=== PATIENT | male | born 1945 | race Caucasian/White ===

== ENCOUNTER 2018-11-13 12:06 | Inpatient (IN) | payer OTHER, MEDICAID ==
[~2018-11-13] VITALS: Ht 175.3 cm; Wt 83.6 kg
[2018-11-13] MEDS ORDERED: ALBUTEROL (0.083%) 2.5MG/3ML NEB HHN STA (12:11)
[2018-11-13] MEDS ORDERED: METHYLPREDNISOLONE SOD SUCC 125 MG/2 ML VIAL IV STA (12:11)
[2018-11-13] MEDS ORDERED: IPRATROPIUM BROMIDE (0.02%) 0.5MG/2.5ML NEB HHN STA (12:11)
[2018-11-13 12:44] LABS: HEMATOCRIT. 44.3 % (42.0-52.0); HEMOGLOBIN. 14.5 g/dL (14.0-18.0); MEAN CORPUSCULAR HEMOGLOBIN 28.9 pg (28.0-32.0); MEAN CORPUSCULAR VOLUME 88.1 fL (80.0-94.0); PLATELET 230 x1000/uL (130-400); RED BLOOD CELL COUNT 5.03 mill/uL (4.7-6.1); RED CELL DISTRIBUTION WIDTH 17.4 % (11.6-14.6)
[2018-11-13 12:51] LABS: CHLORIDE 98 mEq/L (98-107)
[2018-11-13] MEDS ORDERED: LEVOFLOXACIN 750MG PREMIX 150 ML IV ONE (13:00)
[2018-11-13 13:15] LABS: PLATELET ESTIMATE NORMAL
[2018-11-13 14:02] LABS: BG BASE EXCESS -0.5 mmol/L (-2.0-2.0); BG CARBOXYHEMOGLOBIN 0.2 % (0.5-1.5); BG FRACTION INSPIRED OXYGEN 100; BG HCO3 ACT 23.1 mmol/L (22.0-26.0); BG METHEMOGLOBIN 0.3 % (0.0-1.5); BG OXYHEMOGLOBIN 98.5 % (94.0-97.0); BG PCO2 35.2 mmHg (35.0-45.0); BG PH 7.435 (7.350-7.450); BG PO2 180.3 mmHg (75.0-100.0); BG SAMPLE SITE RIGHT RADIAL; BG TOTAL HEMOGLOBIN 14.8 g/dL (12.0-18.0); BG VENT MODE MASK - BIPAP
[2018-11-13 15:50] VITALS: BP 132/92
[2018-11-13 16:01] VITALS: BP 132/92
[2018-11-13 16:14] VITALS: BP 138/91
[2018-11-13] MEDS ORDERED: PRED-543 PO (16:57)
[2018-11-13] MEDS ORDERED: TIOT18CA3 IH (16:57)
[2018-11-13] MEDS ORDERED: CLOT24CR TP (16:57)
[2018-11-13] MEDS ORDERED: FLUT1DIS3 INH (17:05)
[2018-11-13] MEDS ORDERED: FURO20TA4 PO (17:05)
[2018-11-13] MEDS ORDERED: DABI150C PO (17:05)
[2018-11-13] MEDS ORDERED: TAMS-11 PO (17:05)
[2018-11-13] MEDS ORDERED: REV20 GT (17:05)
[2018-11-13] MEDS ORDERED: SERT50TA12 PO (17:05)
[2018-11-13] MEDS ORDERED: ATOR-2 PO (17:05)
[2018-11-13] MEDS ORDERED: LOSA25TA3 PO (17:05)
[2018-11-13] MEDS ORDERED: NICO-645 TP (17:05)
[2018-11-13] MEDS ORDERED: OMEP20TA15 PO (17:10)
[2018-11-13] MEDS ORDERED: BIMA2.5D4 LEFTEYE (17:10)
[2018-11-13] MEDS ORDERED: BRIM10DR2 LEFTEYE (17:10)
[2018-11-13] MEDS ORDERED: FLUT9.9S BOTHNSTRLS (17:10)
[2018-11-13] MEDS ORDERED: MONT10TA21 PO (17:10)
[2018-11-13] MEDS ORDERED: TRU10 LEFTEYE (17:10)
[2018-11-13] MEDS ORDERED: METF1000 PO (17:10)
[2018-11-13 18:00] VITALS: BP 174/80
[2018-11-13 20:03] VITALS: BP 135/96
[2018-11-13] MEDS ORDERED: CLONIDINE 0.1MG TABLET PO PRN (20:30)
[2018-11-13] MEDS ORDERED: ONDANSETRON HCL 4MG/2ML INJ IV PRN (20:30)
[2018-11-13] MEDS ORDERED: DIPHENHYDRAMINE 50MG/ML VIAL IV PRN (20:30)
[2018-11-13] MEDS ORDERED: IPRATROPIUM/ALBUTEROL 0.5-3(2.5)MG/3ML NEB INH PRN (20:30)
[2018-11-13] MEDS ORDERED: GUAIFENESIN 200MG/10ML SUGAR FREE UDC PO PRN (20:30)
[2018-11-13] MEDS ORDERED: ACETAMINOPHEN 325MG TABLET PO PRN (20:30)
[2018-11-13] MEDS ORDERED: LORAZEPAM 2MG/ML CPJ IV PRN (20:30)
[2018-11-13] MEDS ORDERED: MAGNESIUM/ALUMINUM HYDROXIDE/SIMETHICONE 30ML UDC PO PRN (20:30)
[2018-11-13] MEDS ORDERED: LEVOFLOXACIN 500MG PREMIX 100 ML IV SCH ×2 (20:30→22:30)
[2018-11-13] MEDS ORDERED: DEXTROSE 50% WATER 50ML SYRINGE IV PRN (20:45)
[2018-11-13] MEDS: METHYLPREDNISOLONE SOD SUCC 40 MG/ML VIAL IV SCH (21:46)
[2018-11-13] MEDS: SODIUM CHLORIDE 0.9% INJ 3ML FLUSH IVF SCH (21:47)
[2018-11-13] MEDS: INSULIN LISPRO 100 UNITS/ML SUBCUT SCH (21:49)
[2018-11-13] MEDS: BLOOD SUGAR DIAGNOSTIC STRIP TEST SCH (21:49)
[2018-11-13] MEDS ORDERED: MONTELUKAST SODIUM 10MG TABLET PO SCH (22:00)
[2018-11-13] MEDS: ENOXAPARIN 80MG/0.8ML SYR SUBCUT SCH (23:08)
[2018-11-14] VITALS (9 sets, daily range): BP systolic 30–169; BP diastolic 21–96
[2018-11-14 00:05] LABS: INR 1.3; PROTHROMBIN TIME 13.3 sec (9.6-11.0)
[2018-11-14] MEDS: IPRATROPIUM/ALBUTEROL 0.5-3(2.5)MG/3ML NEB HHN SCH ×4 (00:48→11:29)
[2018-11-14] MEDS: BLOOD SUGAR DIAGNOSTIC STRIP TEST SCH (06:28)
[2018-11-14] MEDS: METHYLPREDNISOLONE SOD SUCC 40 MG/ML VIAL IV SCH ×2 (06:32→11:37)
[2018-11-14] MEDS: SODIUM CHLORIDE 0.9% INJ 3ML FLUSH IVF SCH (06:33)
[2018-11-14] MEDS: INSULIN LISPRO 100 UNITS/ML SUBCUT SCH (06:33)
[2018-11-14] MEDS ORDERED: OMEPRAZOLE 20MG CAPSULE EXTENDED RELEASE PO SCH (06:50)
[2018-11-14] MEDS ORDERED: SERTRALINE HCL 25MG TABLET PO SCH (09:00)
[2018-11-14] MEDS ORDERED: DORZOLAMIDE 2% OPHTH 10 ML BOTTLE LEFTEYE SCH (09:00)
[2018-11-14] MEDS ORDERED: TAMSULOSIN HCL 0.4MG SR CAPSULE PO SCH (09:00)
[2018-11-14] MEDS ORDERED: NICOTINE 14MG PATCH TD SCH (09:00)
[2018-11-14] MEDS: ENOXAPARIN 80MG/0.8ML SYR SUBCUT SCH (09:08)
[2018-11-14 09:41] LABS: BG BASE EXCESS -0.9 mmol/L (-2.0-2.0); BG BILEVEL POS AIRWAY PRESSURE 15/5; BG CARBOXYHEMOGLOBIN 0.4 % (0.5-1.5); BG DEOXYHEMOGLOBIN 9.3 % (0.0-5.0); BG HCO3 ACT 22.5 mmol/L (22.0-26.0); BG METHEMOGLOBIN 0.1 % (0.0-1.5); BG OXYGEN SATURATION 90.7 % (92.0-98.5); BG OXYHEMOGLOBIN 90.2 % (94.0-97.0); BG PCO2 33.8 mmHg (35.0-45.0); BG PH 7.441 (7.350-7.450); BG PO2 65.8 mmHg (75.0-100.0); BG SAMPLE SITE RIGHT RADIAL; BG TOTAL HEMOGLOBIN 14.6 g/dL (12.0-18.0); BG VENT MODE MASK - BIPAP; BG VENT RATE 16 set
[2018-11-14] MEDS ORDERED: ATROPINE SULFATE 1MG/10ML SYR ONE (12:20)
[2018-11-14] MEDS ORDERED: ETOMIDATE 2MG/ML 10ML VIAL IV ONE (12:20)
[2018-11-14] MEDS ORDERED: VECURONIUM BROMIDE 10 MG/VIAL IV ONE (12:20)
[2018-11-14] MEDS ORDERED: LIDOCAINE HCL 2% 5ML SYRINGE IV ONE (12:20)
[2018-11-14] MEDS ORDERED: SUCCINYLCHOLINE CHLORIDE 200MG/10ML IV ONE (12:20)
[2018-11-14] MEDS ORDERED: SODIUM BICARBONATE 8.4% 10MEQ/10ML SYR IV ONE (12:20)
[2018-11-14] MEDS ORDERED: CALCIUM CHLORIDE 1GM/10ML SYR IV ONE (12:20)
[2018-11-14] MEDS ORDERED: EPINEPHRINE 0.1MG/ML (1:10,000) 10ML SYR ONE (12:20)
[2018-11-14] MEDS ORDERED: AMIODARONE HCL 50MG/ML 3ML VIAL IV ONE (12:20)
[2018-11-14] MEDS ORDERED: SODIUM CHLORIDE 0.9% 10ML VIAL ONE ×2 (12:20)
[2018-11-14] MEDS ORDERED: PROPOFOL 10MG/ML 100ML 100 ML IV PRN (12:45)
[2018-11-14] MEDS ORDERED: FUROSEMIDE 40MG/4ML VIAL ONE (12:50)
[2018-11-14] MEDS ORDERED: FUROSEMIDE 40MG/4ML VIAL IVP ONE (13:00)
[2018-11-14] MEDS ORDERED: NITROGLYCERIN 50MG PREMIX 250 ML IV PRN (13:00)
[2018-11-14 13:28] LABS: BG BASE EXCESS -6.7 mmol/L (-2.0-2.0); BG CARBOXYHEMOGLOBIN 0.3 % (0.5-1.5); BG DEOXYHEMOGLOBIN 11.6 % (0.0-5.0); BG FRACTION INSPIRED OXYGEN 100; BG HCO3 ACT 22.7 mmol/L (22.0-26.0); BG METHEMOGLOBIN 0.3 % (0.0-1.5); BG OXYGEN SATURATION 88.3 % (92.0-98.5); BG OXYHEMOGLOBIN 87.8 % (94.0-97.0); BG PH 7.182 (7.350-7.450); BG PO2 73.8 mmHg (75.0-100.0); BG SAMPLE SITE LEFT RADIAL; BG TIDAL VOLUME(mL) 500 mL; BG TOTAL HEMOGLOBIN 15.4 g/dL (12.0-18.0); BG VENT MODE VENT - A/C; BG VENT RATE 16 set
[2018-11-14] MEDS ORDERED: DOPAMINE 400MG/250ML PREMIX 250 ML IV ONE (13:35)
[2018-11-14] MEDS ORDERED: SODIUM BICARBONATE 8.4% 1 MEQ/ML 50ML SYR IV ONE ×2 (13:42→13:45)
== END 2018-11-14 14:46 | disposition expired | DRG 871 ==
LOC: ER 12:22 → 3WST 13:38 → ENRESERV 14:55 → MICUSO 11-14 11:54
PROVIDERS: ADMIT Internal Medicine; ATTEND Internal Medicine
PROC: 5A09357 Assistance with Respiratory Ventilation, Less than 24 Consecutive Hours, Continuous Positive Airway Pressure (ICD-10-PCS; 2018-11-13)
PROC: 0BH17EZ Insertion of Endotracheal Airway into Trachea, Via Natural or Artificial Opening (ICD-10-PCS; principal; 2018-11-14)
PROC: 5A1935Z Respiratory Ventilation, Less than 24 Consecutive Hours (ICD-10-PCS; 2018-11-14)
PROC: 5A09357 Assistance with Respiratory Ventilation, Less than 24 Consecutive Hours, Continuous Positive Airway Pressure (ICD-10-PCS; 2018-11-14)
PROC: 5A12012 Performance of Cardiac Output, Single, Manual (ICD-10-PCS; 2018-11-14)
PROC: 0W9D3ZZ Drainage of Pericardial Cavity, Percutaneous Approach (ICD-10-PCS; 2018-11-14)
PROC: 0W9D3ZZ Drainage of Pericardial Cavity, Percutaneous Approach (ICD-10-PCS; 2018-11-14)
DX: A41.9 Sepsis, unspecified organism (principal); J96.01 Acute respiratory failure with hypoxia; I50.21 Acute systolic (congestive) heart failure; J18.9 Pneumonia, unspecified organism; J44.1 Chronic obstructive pulmonary disease with (acute) exacerbation; I31.4 Cardiac tamponade; I31.3 Pericardial effusion (noninflammatory); I47.2 Ventricular tachycardia; J44.0 Chronic obstructive pulmonary disease with (acute) lower respiratory infection; E11.9 Type 2 diabetes mellitus without complications; F32.9 Major depressive disorder, single episode, unspecified; I25.10 Atherosclerotic heart disease of native coronary artery without angina pectoris; I48.91 Unspecified atrial fibrillation; F17.200 Nicotine dependence, unspecified, uncomplicated; I46.9 Cardiac arrest, cause unspecified; I49.01 Ventricular fibrillation; I11.0 Hypertensive heart disease with heart failure; Z82.49 Family history of ischemic heart disease and other diseases of the circulatory system; Z83.3 Family history of diabetes mellitus; Z95.2 Presence of prosthetic heart valve; Z99.81 Dependence on supplemental oxygen; Z79.899 Other long term (current) drug therapy; Z79.84 Long term (current) use of oral hypoglycemic drugs
CPT/HCPCS: 36415; 36600; 71045; 82375; 82805; 82962; 83880; 84484; 92950; 93005; 94002; 94640; 94660; 96374; 99285; J0282; J0330; J0461; J1265; J1650; J1815; J1940; J1956; J2704; J2920; J2930; J3490; J7040; J7611; J7620; A4315